=== PATIENT | male | born 1960 | race Caucasian/White ===

== ENCOUNTER → 2019-09-30 14:40 | Outpatient (CLI) | payer OTHER, SELFPAY ==
[2019-11-03 07:20] LABS: Size 6X6 mm
[2019-11-03 07:22] LABS: Carbonate Apatite 1%; Photo SEE EMR
== END ==
PROVIDERS: Visit Provider Specialist
DX: N20.0 Calculus of kidney (principal)
CPT/HCPCS: 82365

== ENCOUNTER → 2019-09-30 15:21 | Outpatient (CLI) | payer OTHER, SELFPAY ==
--- NOTE | 2019-09-30 15:29 | DI.RAD.S_ITS ---
PROCEDURE: XR KUB INDICATIONS: kidney stones TECHNIQUE: One view of the abdomen acquired. COMPARISON: [facility], CR, XR ABDOMEN 1 VIEW, 03/07/2018, 15:33. FINDINGS: Surgical changes and devices: None. Bowel: Bowel gas pattern is normal. Soft tissues: Multiple calcifications projected over the left kidney, largest 2 measure roughly 6 mm. Bones: No suspicious bony lesions. IMPRESSION: Multiple calcifications projected over the left kidney, largest 2 measuring 6 mm. Dictated by: Nathan Humphreys [facility] Interpreted: Rama Rivera MD on 09/30/2019 at 17:00 Approved by: Rama Rivera M.D. on 09/30/2019 at 17:11
== END ==
PROVIDERS: Referring Provider Specialist; Visit Provider Specialist
DX: N20.0 Calculus of kidney (principal)
CPT/HCPCS: 74018; 81002; 82365; 99213

== ENCOUNTER → 2019-10-13 14:47 | Outpatient (CLI) | payer OTHER, SELFPAY ==
[2019-10-14 09:09] LABS: COVID19 Sendout Not Detected (Not Detect)
== END ==
PROVIDERS: Visit Provider Physician Assistant
DX: Z11.59 Encounter for screening for other viral diseases (principal)
CPT/HCPCS: 87635

== ENCOUNTER 2019-10-16 08:01 | Day surgery (SDC) | payer OTHER, SELFPAY ==
[2019-10-05 07:54] VITALS: BMI 26.4
[2019-10-16] VITALS (7 sets, daily range): BP systolic 168–183; BP diastolic 86–99; PULSE 49–64; RESP 13–24; TEMP 36.2–36.9; O2SAT 95–98; BMI 27.1
[2019-10-16] MEDS: LACTATED RINGERS 1,000 ML 42 ML IV (09:20)
--- NOTE | 2019-10-16 09:55 | PM.PREOP ---
Pre-operative Note Interval Note History & Physical reviewed/Exam performed by Physician: Yes Changes to H&P: No
--- NOTE | 2019-10-16 10:41 | SUR.OPER ---
pt on lithotripsy gel hammock table. arms at side, head on pillow
--- NOTE | 2019-10-16 11:39 | PM.OP.1 ---
Operative Date/Time/Diagnoses Date of procedure: 10/16/19 Time of procedure: 11:39 Pre-op diagnosis: Multiple left renal calculi Post-op diagnosis: same Procedure & Clinicians Procedure: Left extracorporeal shockwave lithotripsy (see power level 7.0 x 2500 shocks). Same procedure as scheduled: Yes Indications: 1. Multiple left renal calculi. 2. History of renal colic. Surgeon: Jeannie Charles Click Yes if Unassisted: Yes Anesthesia Type: General Operative Notes Findings: Multiple left renal calculi as depicted on radiographic images. Closure Type: not applicable Specimen(s): none sent Estimated Blood Loss (mL): 0 Blood products transfused: none Tourniquet time (min): 0 Procedure in detail: The patient was positioned supine and was administered general anesthesia. The above described calculi were localized in the X, Y, and Z plane sequentially, beginning most superiorly and moving more inferiorly in the left kidney. The lower most calculi were not treated due to limitations of number of shocks and power level per treatment day. The treated stones and the fragments were really localize as needed throughout the case. At case conclusion there was excellent radiographic evidence of stone comminution. The patient was then awakened, transferred to [facility], and transferred to the recovery room. Complications: none Post-operative Condition: stable Disposition: PACU Plan for aftercare: Home
[2019-10-16] MEDS: FUROSEMIDE 40 MG/4 ML VIAL 20 MG IV (11:58)
[2019-10-16] MEDS: HYDROCODONE/ACET 5/325 TABLET 1 TAB PO (12:23)
--- NOTE | 2019-10-16 12:25 | SUR.PHASEII ---
Urine strained, no fragments noted.
== END 2019-10-16 12:40 | disposition home or self-care (01) ==
PROVIDERS: Referring Provider Specialist; Visit Provider Specialist
PROC: (CPT 50590; principal; 2019-10-16 09:45)
DX: I10 Essential (primary) hypertension (principal)
CPT/HCPCS: 50590; J1940; J2704; J3010